=== PATIENT | male | born 1950 | race Caucasian/White ===

== ENCOUNTER 2018-01-13 22:34 | Emergency (ER) | payer SELFPAY ==
[~2018-01-13] VITALS: Ht 182.9 cm; Wt 80.0 kg
[~2018-01-13 22:34] MED LIST: PRED-402 PO
[2018-01-13] MEDS ORDERED: FAMOTIDINE 20 MG TABLET ONE (23:08)
[2018-01-13] MEDS ORDERED: FAMOTIDINE 20 MG TABLET PO ONE (23:30)
[2018-01-13 23:31] VITALS: BP 139/78
== END 2018-01-13 23:33 | disposition home or self-care (01) ==
LOC: ED 23:15
DX: L50.1 Idiopathic urticaria (principal); I85.00 Esophageal varices without bleeding; J44.9 Chronic obstructive pulmonary disease, unspecified; F10.20 Alcohol dependence, uncomplicated; L24.9 Irritant contact dermatitis, unspecified cause; Z59.0 Homelessness
CPT/HCPCS: 99284; J7512; Q0177

== ENCOUNTER 2018-09-23 21:32 | Emergency (ER) | payer MEDICARE ==
[~2018-09-23] VITALS: Ht 190.5 cm; Wt 82.0 kg
[2018-09-23 21:44] VITALS: BP 124/86
== END 2018-09-23 23:32 | disposition home or self-care (01) ==
LOC: ED 22:12
DX: S76.112A Strain of left quadriceps muscle, fascia and tendon, initial encounter (principal); M25.462 Effusion, left knee; W01.0XXA Fall on same level from slipping, tripping and stumbling without subsequent striking against object, initial encounter; Y93.89 Activity, other specified; Y92.89 Other specified places as the place of occurrence of the external cause; Y99.8 Other external cause status
CPT/HCPCS: 29505; 99283